=== PATIENT | female | born 2000 | race Caucasian/White ===

== ENCOUNTER 2018-01-10 23:33 | Inpatient (IN) | payer OTHER ==
[~2018-01-10] VITALS: Ht 167.6 cm; Wt 86.8 kg
[2018-01-10] MEDS ORDERED: ONDANSETRON 4MG OD TAB PO STA (23:40)
[2018-01-11] VITALS (40 sets, daily range): BP systolic 111–145; BP diastolic 63–97; PULSE 68–98; TEMP 36.5–37.7; O2SAT 96–100; Ht 167.6 cm; Wt 86.8 kg
[2018-01-11 00:14] LABS: BLOOD UREA NITROGEN 8 mg/dl (7-18); CALCIUM 8.6 mg/dl (8.5-10.1); CARBON DIOXIDE 23 mmol/L (21-32); CREATININE 0.74 mg/dl (0.60-1.20); GLUCOSE 104 mg/dl (70-99); SODIUM 139 mmol/L (136-145)
[2018-01-11] MEDS ORDERED: POTASSIUM CHLORIDE 10 MEQ / 100ML WTR IV STA (00:42)
[2018-01-11] MEDS ORDERED: ONDANSETRON INJ 2 MG/ML 2 ML VIAL IV STA ×2 (00:42→08:12)
[2018-01-11] MEDS ORDERED: SODIUM CHLORIDE 0.9% 1000ML 1,000 ML IV ONE (00:45)
[2018-01-11] MEDS ORDERED: POTASSIUM CHLR 20 MEQ / WTR 40 MEQ in PREMIXED WATER 100 ML IV STA (00:48)
[2018-01-11] MEDS: POTASSIUM CHLR 10 MEQ / WTR 10 MEQ IV SCH ×2 (01:24→02:58)
[2018-01-11 01:37] LABS: BASO % 0.4 %; BASO ABS # 0.04 K/uL (0-0.2); EOS % 0.9 %; EOS ABS # 0.08 K/uL (0-0.5); HEMATOCRIT 35.9 % (37-47); HEMOGLOBIN 12.8 g/dL (12.0-16.0); IG# 0.02 K/uL (0.00-0.02); LYMPH % 35.1 %; LYMPH ABS # 3.19 K/uL (1.2-3.4); MEAN CELL VOLUME 82.9 fL (80-100); MEAN CORPUSCULAR HEMOGLOBIN 29.6 pg (25-34); MEAN CORPUSCULAR HGB CONC 35.7 g/dl (32-36); MEAN PLATELET VOLUME 9.9 fL (7.4-10.4); MONO % 8.5 %; MONO ABS # 0.77 K/uL (0.11-0.59); NEUT % 54.9 %; NEUT ABS # 4.99 K/uL (1.4-6.5); PLATELET COUNT 368 K/uL (130-400); RED CELL DISTRIBUTION WIDTH CV 12.6 % (11.5-14.5); RED CELL DISTRIBUTION WIDTH SD 38.2 fL (36.4-46.3); WHITE BLOOD COUNT 9.09 K/uL (4.8-10.8)
[2018-01-11 01:50] LABS: CKMB < 0.5 ng/ml (0.5-3.6)
[2018-01-11] MEDS ORDERED: MAGNESIUM HYDROXIDE SUSP 30 ML UDC PO PRN (02:45)
[2018-01-11] MEDS ORDERED: ALUMINUM/MAGNESIUM/SIMETH (MAALOX MAX) 30 ML UDC PO PRN (02:45)
[2018-01-11] MEDS ORDERED: ICU PROTOCOL FOR HYPERGLYCEMIA PRN (02:45)
[2018-01-11] MEDS ORDERED: ACETAMINOPHEN 325 MG TAB PO PRN (02:45)
--- NOTE | 2018-01-11 02:59 | Critical Care Consultation ---
Critical Care Consultation Date of Consultation: Jan 11, 2018. Attending Physician: Dr. 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 She was found back at her residence and 911 was called by friends. She can not recall how much she drank. She denies using any other substances and her toxicology screen is negative to date. Send out labs for synthetics are pending. Pt was minimally responsive when I first saw her. She had no response as nursing inserted a tello catheter or additional IV sites. However, about 15 minutes later she did arose a bit more to tell me a few details about her evening. Pt states she has been under more stress lately, but nothing that she wanted to talk about at this time. She was unaware of how she returned home and does not recall any additional events leading up to admission in the hospital. While pts BAL was 252, pt was also noted to have several runs of heart block that initially occurred while vomiting. The longest one was measured as p waves only for 11 seconds. In the last hour, she has had no more runs. Her potassium was 3.0 and is currently being replaced. The remainder of her labs are grossly normal. Other electrolytes are WNL. Pt denies any other significant history. Only medication she takes in her control pill. She denies weight loss, fever, dizziness, headache, muscle weakness, numbness, change in vision, sore throat, chest pain, palpitations, awareness of tachyarrhythmias, leg swelling, shortness of breath, cough, bloody stools, diarrhea, constipation, abdominal pain, other changes in urine or bowel habits. Past Medical/Surgical History Medical Problems: Alcohol intoxication Heart block Social History Smoking Status: Unknown if Ever Smoked Alcohol Use: occasionally (Never to this degree previously) Marital Status: single Occupation Status: [employer] student Home Medications Unable to Obtain Active Prescriptions or Reported Meds Current Inpatient Medications Current Inpatient Medications Medications (Trade) Dose Ordered Sig/Gordo Route Start Time Stop Time Status Last Admin Dose Admin Potassium Chloride 100 ml @ 100 mls/hr Q1H IV 01/11/18 01:00 01/11/18 02:59 01/11/18 02:58 100 MLS/HR Heparin Sodium (Porcine) (Heparin Sq 5000 Unit/0.5ml) 5,000 unit Q8H SQ 01/11/18 02:45 02/10/18 02:44 UNV Acetaminophen (Tylenol Tab) 650 mg Q4H PRN PO 01/11/18 02:45 02/10/18 02:44 UNV Al Hydrox/Mg Hydrox/Simethicone (Maalox Max Susp) 15 ml Q4H PRN PO 01/11/18 02:45 02/10/18 02:44 UNV Magnesium Hydroxide (Milk Of Magnesia Susp) 30 ml Q12H PRN PO 01/11/18 02:45 02/10/18 02:44 UNV Miscellaneous Information (Icu Protocol For Hyperglycemia) 1 ea PRN PRN N/A 01/11/18 02:45 01/13/18 02:44 UNV Potassium Chloride/Dextrose/ Sod Cl 1,000 ml @ 200 mls/hr Q5H IV 01/11/18 02:45 02/10/18 02:44 UNV Potassium Chloride 10 meq/ Prmx 100 ml @ 100 mls/hr Q1H IV 01/11/18 03:00 02/10/18 02:59 UNV Review of Systems 12 systems reviewed and negative other than previously mentioned in the HPI. Physical Exam Date Time Temp Pulse Resp B/P (MAP) Pulse Ox O2 Delivery O2 Flow Rate FiO2 01/11/18 02:30 98 16 98/60 97 Room Air 01/11/18 01:56 96 01/11/18 01:53 79 01/11/18 01:45 81 16 104/58 99 Room Air 01/11/18 01:01 115 01/11/18 01:00 99 15 106/61 98 Room Air 01/11/18 00:59 0 01/11/18 00:39 107 01/11/18 00:38 0 01/10/18 23:57 67 01/10/18 23:45 50 01/10/18 23:42 90 Room Air 01/10/18 23:42 36.7 65 16 107/68 90 Room Air 01/10/18 23:40 102 Vital Signs - as noted Laboratory Data - as noted Physical Exam: General - NAD, laying in vomit Eyes - PERRL, EOMI No icterus, gaze conjugate ENT - Mucosa moist, no lesions or candidiasis Neck - Supple, trachea midline, no masses or lymphadenopathy, no JVD or bruits Lungs - No paradoxical chest wall movement, coarse at the bases otherwise clear to auscultation bilaterally, no wheezes, rales, or rhonchi Heart - Sinus Tachycardia, No murmur, rubs, clicks, or gallops appreciated Abdomen - BS present, no bruits noted, tympanic to percussion, soft, nontender, nondistended, no organomegaly Extremities - No edema, pedal pulses intact Neuro - A&OX3 Strength extremities equal and appropriate bilaterally Reflexes: Bicep, brachioradialis, patellar, and plantar normal and equal CN:PERRL, EOMI, no facial asymmetry, uvula/tongue midline Laboratory Results Last 24 Hours Test 01/10/18 23:44 01/11/18 00:48 01/11/18 01:20 01/11/18 02:51 White Blood Count 9.09 K/uL Red Blood Count 4.33 M/uL Hemoglobin 12.8 g/dL Hematocrit 35.9 % Mean Corpuscular Volume 82.9 fL Mean Corpuscular Hemoglobin 29.6 pg Mean Corpuscular Hemoglobin Concent 35.7 g/dl Platelet Count 368 K/uL Mean Platelet Volume 9.9 fL Neutrophils (%) (Auto) 54.9 % Lymphocytes (%) (Auto) 35.1 % Monocytes (%) (Auto) 8.5 % Eosinophils (%) (Auto) 0.9 % Basophils (%) (Auto) 0.4 % Neutrophils # (Auto) 4.99 K/uL Lymphocytes # (Auto) 3.19 K/uL Monocytes # (Auto) 0.77 K/uL Eosinophils # (Auto) 0.08 K/uL Basophils # (Auto) 0.04 K/uL RDW Standard Deviation 38.2 fL RDW Coefficient of Variation 12.6 % Immature Granulocyte % (Auto) 0.2 % Immature Granulocyte # (Auto) 0.02 K/uL Sodium Level 139 mmol/L Potassium Level 3.0 mmol/L Chloride Level 106 mmol/L Carbon Dioxide Level 23 mmol/L Anion Gap 10.0 mmol/L Blood Urea Nitrogen 8 mg/dl Creatinine 0.74 mg/dl Est Creatinine Clear Calc Drug Dose 130.4 ml/min Estimated GFR () 136.1 Estimated GFR (Non- 117.4 BUN/Creatinine Ratio 10.2 Bedside Glucose 103 mg/dl Random Glucose 104 mg/dl Calcium Level 8.6 mg/dl Phosphorus Level 3.0 mg/dl Magnesium Level 2.3 mg/dl Total Creatine Kinase 82 U/L Creatine Kinase MB < 0.5 ng/ml Creatine Kinase MB Ratio Troponin I < 0.015 ng/ml Thyroid Stimulating Hormone (TSH) 0.713 uIu/ml Human Chorionic Gonadotropin, Qual NEG Ethyl Alcohol mg/dL 252.0 mg/dl Lyme Disease IgG Antibody NEG Lyme Disease IgM Antibody NEG Urine Color YELLOW Urine Appearance CLEAR Urine pH 5.0 Urine Specific [place] 1.011 Urine Protein NEG Urine Glucose (UA) NEG Urine Ketones NEG Urine Occult Blood NEG Urine Nitrite NEG Urine Bilirubin NEG Urine Urobilinogen NEG Urine Leukocyte Esterase NEG Urine WBC (Auto) 0 /hpf Urine RBC (Auto) 0-4 /hpf Urine Hyaline Casts (Auto) 0 /lpf Urine Epithelial Cells (Auto) 0-5 /lpf Urine Bacteria (Auto) NEG Urine Opiates Screen NEG Urine Methadone, Qualitative NEG Urine Barbiturates NEG Urine Phencyclidine (PCP) Level NEG Ur Amphetamine/Methamphetamine NEG MDMA (Ecstasy) Screen NEG Urine Benzodiazepines Screen NEG Urine Cocaine Metabolite NEG Urine Marijuana (THC) NEG Diagnostic Results CT Head: No acute intracranial abnormality identified. Poylps versus mucous retention cyst and mucosal thickening in the left maxillary sinus. Mild mucosal thickening in the ethmoid arid cells. CXR: No acute process noted. Assessment & Plan (1) Heart block (2) Alcohol intoxication (3) Hypokalemia Reason Critically Ill: Patient is an 17-year-old female who is transferred to the ICU for close monitoring for heart block noted in the setting of acute alcohol intoxication. BAL 252. PLAN: Neuro: * Psych Consult placed * Pt denies suicidal ideation * No pain noted Resp: * Supplemental oxygen as required CV: * Pacer pads to remain in place * Cardiology consulted: Dr. Delarosa * Appears to be related to acute alcohol intoxication and nausea * Troponin Neg x1 * 2nd Degree AV block noted during bouts of nausea * Monitor on telemetry * Prolonged QTc, Monitor closely * ECHO pending * Optimize Electrolytes * R/O Sarcoid Fluids/Renal: * Fluids @ 200 (D5NSS + 20K) * Tello in place * Trend Cr ID: * No current indication * Trend Fever Curve GI/Nutrition: * NPO * Nausea * Milk of Magnesia and Maalox available * Prolonged QTc Heme: * Daily CBC * DVT: Heparin SQ Endocrine: * Accu-Checks per protocol, started insulin infusion for 2 blood sugars greater than 180 * TSH: 0.713 Access: Maintain 2 (18g) IV sites CCT: 45 Minutes; This time is exclusive of all separately billable procedures. Thank you for involving us in the care of this patient. Please refer to Dr. Marie's addendum for further recommendations.
--- NOTE | 2018-01-11 03:23 | History and Physical ---
History & Physical Date & Time of Service: Jan 11, 2018 at 02:53 Chief Complaint: Alcohol Overdose Primary Care Physician: No Doctor, Assigned History of Present Illness Source: patient 17 y/o F with no known medical history. The pt drank an excessive amount of alcohol, eventually began vomiting and then became poorly responsive. EMS were alerted and subsequently transported her to the ER. While on monitor in the ER she had several episodes of complete heart block lasting as long as 11 seconds. Initial labs were notable only for hypokalemia and an ETOH level of 252. She regained her orientation in the ER and is AAO x 3 at the time of admission. She does not recall any episodes of lightheadedness, CP or SOB over the past several days. 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 [employer] - does not smoke - occasional alcohol, denies excessive use in general Smoking Status: Never Smoker Home Medications Unable to Obtain Active Prescriptions or Reported Meds Review of Systems Constitutional: No fever, No chills, No sweats Eyes: No worsening of vision ENT: No hearing loss, No nasal symptoms Respiratory: No cough, No sputum, No wheezing Cardiovascular: No chest pain, No orthopnea, No PND Abdomen: + nausea, + vomiting, No pain Musculoskeletal: No joint pain Genitourinary - Female: No dysuria, No urinary frequency, No urinary urgency Neurologic: + problem reported (Near LOC during intoxication), No memory loss , No paralysis Psychiatric: No depression symptoms Endocrine: No fatigue Hematologic / Lymphatic: No abnormal bleeding/bruising Integumentary: No rash Allergic / Immunologic: No environmental allergies Physical Exam Vital Signs Date Time Temp Pulse Resp B/P (MAP) Pulse Ox O2 Delivery O2 Flow Rate FiO2 01/11/18 02:30 98 16 98/60 97 Room Air 01/11/18 01:56 96 01/11/18 01:53 79 01/11/18 01:45 81 16 104/58 99 Room Air 01/11/18 01:01 115 01/11/18 01:00 99 15 106/61 98 Room Air 01/11/18 00:59 0 01/11/18 00:39 107 01/11/18 00:38 0 01/10/18 23:57 67 01/10/18 23:45 50 3/15/18 23:42 90 Room Air 01/10/18 23:42 36.7 65 16 107/68 90 Room Air 01/10/18 23:40 102 General Appearance: + pertinent finding (Overweight, well-appearing young female in no distress) Head: normocephalic ENT: normal ENT inspection, pharynx normal Neck: supple, no JVD Respiratory/Chest: chest non-tender, lungs clear, normal breath sounds Cardiovascular: regular rate, rhythm, no edema, no gallop Abdomen/GI: normal bowel sounds, non tender, soft Back: normal inspection, no CVA tenderness Extremities/Musculoskelatal: normal inspection, no calf tenderness Neurologic/Psych: terrazzo mechanic II-XII nml as tested, no motor/sensory deficits, alert, oriented x 3 Skin: normal color Diagnostics Laboratory Results Results Past 24 Hours Test 01/10/18 23:44 01/11/18 00:48 01/11/18 01:20 Range/Units White Blood Count 9.09 4.8-10.8 K/uL Red Blood Count 4.33 4.2-5.4 M/uL Hemoglobin 12.8 12.0-16.0 g/dL Hematocrit 35.9 37-47 % Mean Corpuscular Volume 82.9 80-100 fL Mean Corpuscular Hemoglobin 29.6 25-34 pg Mean Corpuscular Hemoglobin Concent 35.7 32-36 g/dl Platelet Count 368 130-400 K/uL Mean Platelet Volume 9.9 7.4-10.4 fL Neutrophils (%) (Auto) 54.9 % Lymphocytes (%) (Auto) 35.1 % Monocytes (%) (Auto) 8.5 % Eosinophils (%) (Auto) 0.9 % Basophils (%) (Auto) 0.4 % Neutrophils # (Auto) 4.99 1.4-6.5 K/uL Lymphocytes # (Auto) 3.19 1.2-3.4 K/uL Monocytes # (Auto) 0.77 0.11-0.59 K/uL Eosinophils # (Auto) 0.08 0-0.5 K/uL Basophils # (Auto) 0.04 0-0.2 K/uL RDW Standard Deviation 38.2 36.4-46.3 fL RDW Coefficient of Variation 12.6 11.5-14.5 % Immature Granulocyte % (Auto) 0.2 % Immature Granulocyte # (Auto) 0.02 0.00-0.02 K/uL Sodium Level 139 136-145 mmol/L Potassium Level 3.0 3.5-5.1 mmol/L Chloride Level 106 98-107 mmol/L Carbon Dioxide Level 23 21-32 mmol/L Anion Gap 10.0 3-11 mmol/L Blood Urea Nitrogen 8 7-18 mg/dl Creatinine 0.74 0.60-1.20 mg/dl Est Creatinine Clear Calc Drug Dose 130.4 ml/min Estimated GFR () 136.1 Estimated GFR (Non- 117.4 BUN/Creatinine Ratio 10.2 10-20 Bedside Glucose 103 70-90 mg/dl Random Glucose 104 70-99 mg/dl Calcium Level 8.6 8.5-10.1 mg/dl Phosphorus Level 3.0 2.5-4.9 mg/dl Magnesium Level 2.3 1.8-2.4 mg/dl Total Creatine Kinase 82 26-192 U/L Creatine Kinase MB < 0.5 0.5-3.6 ng/ml Creatine Kinase MB Ratio 0-3.0 Troponin I < 0.015 0-0.045 ng/ml Thyroid Stimulating Hormone (TSH) 0.713 0.300-4.500 uIu/ml Human Chorionic Gonadotropin, Qual NEG NEG Ethyl Alcohol mg/dL 252.0 0-3 mg/dl Lyme Disease IgG Antibody NEG NEG Lyme Disease IgM Antibody NEG NEG Urine Color YELLOW Urine Appearance CLEAR CLEAR Urine pH 5.0 4.5-7.5 Urine Specific [place] 1.011 1.000-1.030 Urine Protein NEG NEG Urine Glucose (UA) NEG NEG Urine Ketones NEG NEG Urine Occult Blood NEG NEG Urine Nitrite NEG NEG Urine Bilirubin NEG NEG Urine Urobilinogen NEG NEG Urine Leukocyte Esterase NEG NEG Urine WBC (Auto) 0 0-5 /hpf Urine RBC (Auto) 0-4 0-4 /hpf Urine Hyaline Casts (Auto) 0 0-5 /lpf Urine Epithelial Cells (Auto) 0-5 0-5 /lpf Urine Bacteria (Auto) NEG NEG Urine Opiates Screen NEG NEG Urine Methadone, Qualitative NEG NEG Urine Barbiturates NEG NEG Urine Phencyclidine (PCP) Level NEG NEG Ur Amphetamine/Methamphetamine NEG NEG MDMA (Ecstasy) Screen NEG NEG Urine Benzodiazepines Screen NEG NEG Urine Cocaine Metabolite NEG NEG Urine Marijuana (THC) NEG NEG Diagnostic Radiology CT head: Sinus mucosal thickening or possible polyp in L maxillary sinus - otherwise unremarkable EKG Sinus, mild QT prolongation - 485 Impression Assessment and Plan 17 y/o F with no known medical history. The pt drank an excessive amount of alcohol, eventually began vomiting and then became poorly responsive. EMS were alerted and subsequently transported her to the ER. While on monitor in the ER she had several episodes of complete heart block lasting as long as 11 seconds. Initial labs were notable only for hypokalemia and an ETOH level of 252. She regained her orientation in the ER and is AAO x 3 at the time of admission. She does not recall any episodes of lightheadedness, CP or SOB over the past several days. 1) Heart block - etiology not clear - no history of in past - QT is prolonged, however she has not had episodes of VT or fib. An echo is pending, external pacers applied, transferred to ICU for monitoring pending cardio eval. Lyme PCR is initially negative. We will check an ESR and RADHA level as sarcoid is in differential. 2) Alcohol intoxication - awake/alert on admission - IVF provided - will avoid antiemetics due to QT prolongation and heart block 3) Hypokalemia - corrected Full code - Heparin prophylaxis Total time for this admit including review of labs, meds, imaging, records - discussion with pt and ER attending - inc critical care time - 38 min Resuscitation Status VTE Prophylaxis Will order VTE Prophylaxis: Yes
[2018-01-11] MEDS: D5NSS + 20MEQ KCL 1,000 ML IV SCH ×4 (04:12→20:10)
[2018-01-11] MEDS: POTASSIUM CHLR 10 MEQ / WTR 10 MEQ in PREMIXED WATER 100 ML IV SCH ×2 (04:13→05:32)
[2018-01-11] MEDS: HEPARIN SOD 5000 UNIT/0.5 ML CARP SQ SCH ×3 (06:00→22:12)
--- NOTE | 2018-01-11 06:48 | EMERGENCY ROOM VISIT NOTE ---
History First contact with patient: 23:34 Chief Complaint: ALCOHOL OVERDOSE Stated Complaint: ALCOHOL INTOXICATION; HEART BLOCK, FIRST DEGREE Nursing Triage Summary: friends called ems. found pt in apartment intoxicated. friends unsure how much she drank or what per ems. History of Present Illness The patient is a 17 year old female who presents to the Emergency Room for evaluation of alcohol overdose. The patient was found in her apartment intoxicated and vomiting. The patient's roommates contacted EMS, and now the patient presents for further evaluation. The patient did have 2 episodes of vomiting in the ambulance, but none here. The patient is grossly intoxicated and history is limited secondary to her status. There are no reports of trauma or injury. Review of Systems More than 10 systems were reviewed and otherwise negative with the exception of history of present illness. Past Medical/Surgical History Medical Problems: (1) Alcohol intoxication (2) Heart block (3) Heart block, first degree (4) Hypokalemia Family History Father with A. fib, Sister with lupus, Mother with melanoma Social History Smoking Status: Never Smoker Marital Status: single Occupation Status: [employer] student Current/Historical Medications Unable to Obtain Active Prescriptions or Reported Meds Physical Exam Vital Signs Date Time Temp Pulse Resp B/P (MAP) Pulse Ox O2 Delivery O2 Flow Rate FiO2 01/11/18 02:30 98 16 98/60 97 Room Air 01/11/18 01:56 96 01/11/18 01:53 79 01/11/18 01:45 81 16 104/58 99 Room Air 01/11/18 01:01 115 01/11/18 01:00 99 15 106/61 98 Room Air 01/11/18 00:59 0 01/11/18 00:39 107 01/11/18 00:38 0 01/10/18 23:57 67 01/10/18 23:45 50 01/10/18 23:42 90 Room Air 01/10/18 23:42 36.7 65 16 107/68 90 Room Air 01/10/18 23:40 102 Physical Exam VITALS: Vitals are noted on the nurse's note and reviewed by myself. Vital signs stable. GENERAL: Intoxicated female who is not able to answer questions. She is obtunded. HEAD: Normocephalic atraumatic. EARS: External ear normal. External auditory canals clear, tympanic membranes pearly sol without erythema or effusion bilaterally. EYES: Pupils equal round and reactive to light and accommodation. Conjunctivae without injection MOUTH: Mucous membranes moist. Tonsils are not enlarged. Pharynx without erythema, blood, or exudate. Uvula midline. Airway patent. HEART: Regular rate and rhythm without murmurs gallops or rubs. LUNGS: Clear to auscultation bilaterally without wheezes, rales or rhonchi. No retractions or accessory muscle use. MUSCULOSKELETAL: No muscle atrophy, erythema, or edema noted. No obvious injuries or lacerations/abrasions. No bruising. NEURO: Patient was obviously intoxicated and not alert or able to answer questions. Medical Decision & Procedures ER Provider Diagnostic Interpretation: Preliminary Findings Only See Final Report For Complete Findings CT HEAD: No acute intracranial abnormality identified. Polyps versus mucous retention cyst and mucosal thickening in the left maxillary sinus. Mild mucosal thickening in the ethmoid air cells Laboratory Results 01/10/18 23:44 Red Blood Count 4.33, Mean Corpuscular Volume 82.9, Mean Corpuscular Hemoglobin 29.6, Mean Corpuscular Hemoglobin Concent 35.7, Mean Platelet Volume 9.9, Neutrophils (%) (Auto) 54.9, Lymphocytes (%) (Auto) 35.1, Monocytes (%) (Auto) 8.5, Eosinophils (%) (Auto) 0.9, Basophils (%) (Auto) 0.4, Neutrophils # (Auto) 4.99, Lymphocytes # (Auto) 3.19, Monocytes # (Auto) 0.77, Eosinophils # (Auto) 0.08, Basophils # (Auto) 0.04 01/10/18 23:44 Test 01/10/18 23:44 01/11/18 00:48 01/11/18 01:20 White Blood Count 9.09 K/uL (4.8-10.8) Red Blood Count 4.33 M/uL (4.2-5.4) Hemoglobin 12.8 g/dL (12.0-16.0) Hematocrit 35.9 % (37-47) Mean Corpuscular Volume 82.9 fL (80-100) Mean Corpuscular Hemoglobin 29.6 pg (25-34) Mean Corpuscular Hemoglobin Concent 35.7 g/dl (32-36) Platelet Count 368 K/uL (130-400) Mean Platelet Volume 9.9 fL (7.4-10.4) Neutrophils (%) (Auto) 54.9 % Lymphocytes (%) (Auto) 35.1 % Monocytes (%) (Auto) 8.5 % Eosinophils (%) (Auto) 0.9 % Basophils (%) (Auto) 0.4 % Neutrophils # (Auto) 4.99 K/uL (1.4-6.5) Lymphocytes # (Auto) 3.19 K/uL (1.2-3.4) Monocytes # (Auto) 0.77 K/uL (0.11-0.59) Eosinophils # (Auto) 0.08 K/uL (0-0.5) Basophils # (Auto) 0.04 K/uL (0-0.2) RDW Standard Deviation 38.2 fL (36.4-46.3) RDW Coefficient of Variation 12.6 % (11.5-14.5) Immature Granulocyte % (Auto) 0.2 % Immature Granulocyte # (Auto) 0.02 K/uL (0.00-0.02) Erythrocyte Sedimentation Rate 16 mm/hr (0-21) Anion Gap 10.0 mmol/L (3-11) Est Creatinine Clear Calc Drug Dose 130.4 ml/min Estimated GFR () 136.1 Estimated GFR (Non- 117.4 BUN/Creatinine Ratio 10.2 (10-20) Bedside Glucose 103 mg/dl (70-90) Calcium Level 8.6 mg/dl (8.5-10.1) Magnesium Level 2.3 mg/dl (1.8-2.4) Total Creatine Kinase 82 U/L (26-192) Creatine Kinase MB < 0.5 ng/ml (0.5-3.6) Troponin I < 0.015 ng/ml (0-0.045) Thyroid Stimulating Hormone (TSH) 0.713 uIu/ml (0.300-4.500) Human Chorionic Gonadotropin, Qual NEG (NEG) Ethyl Alcohol mg/dL 252.0 mg/dl (0-3) Lyme Disease IgG Antibody NEG (NEG) Lyme Disease IgM Antibody NEG (NEG) Creatine Kinase MB Ratio (0-3.0) Urine Color YELLOW Urine Appearance CLEAR (CLEAR) Urine pH 5.0 (4.5-7.5) Urine Specific [place] 1.011 (1.000-1.030) Urine Protein NEG (NEG) Urine Glucose (UA) NEG (NEG) Urine Ketones NEG (NEG) Urine Occult Blood NEG (NEG) Urine Nitrite NEG (NEG) Urine Bilirubin NEG (NEG) Urine Urobilinogen NEG (NEG) Urine Leukocyte Esterase NEG (NEG) Urine WBC (Auto) 0 /hpf (0-5) Urine RBC (Auto) 0-4 /hpf (0-4) Urine Hyaline Casts (Auto) 0 /lpf (0-5) Urine Epithelial Cells (Auto) 0-5 /lpf (0-5) Urine Bacteria (Auto) NEG (NEG) Urine Opiates Screen NEG (NEG) Urine Methadone, Qualitative NEG (NEG) Urine Barbiturates NEG (NEG) Urine Phencyclidine (PCP) Level NEG (NEG) Ur Amphetamine/Methamphetamine NEG (NEG) MDMA (Ecstasy) Screen NEG (NEG) Urine Benzodiazepines Screen NEG (NEG) Urine Cocaine Metabolite NEG (NEG) Urine Marijuana (THC) NEG (NEG) Medications Administered Medications (Trade) Dose Ordered Sig/Gordo Route Start Time Stop Time Status Last Admin Dose Admin Sodium Chloride 1,000 ml @ 999 mls/hr Q1H1M ONCE IV 01/11/18 00:45 01/11/18 01:45 DC 01/11/18 01:24 999 MLS/HR Potassium Chloride 100 ml @ 100 mls/hr Q1H IV 01/11/18 01:00 01/11/18 02:59 DC 01/11/18 02:58 100 MLS/HR ED Course Physical exam and history were performed. Nursing notes, EMR, and Medication List were personally reviewed. Patient appears to have been drinking alcohol tonight with a few episodes of vomiting prehospital. On examination the patient is obviously intoxicated and obtunded. Labs were obtained of the patient was cared for under aspiration precautions. She was placed on a diagnostic cardiac sonographer. The initial blood work of the patient showed a glucose of around 100 with an elevated alcohol level of 252. The patient is not , and we continue to monitor the patient. Roughly 64 minutes into the patient's ER stay she had a dysrhythmic episode on the diagnostic cardiac sonographer. The patient had a few second run of P waves with no QRS complexes. As we were investigating this the patient had a second, 11 second run that appears to be full heart block. She has an episode of 10 P waves with no QRS complexes. At the time of this episode the patient continues to be intoxicated, and she could not verbalize any associated symptoms. This was discussed with my attending physician, remain closely involved in care and decision-making A second large IV site was placed, with additional labs obtained. Urine was collected via catheter. Chest x-ray and head CT were performed. Pacer pads were placed, and code cart was placed in the patient's room. The patient's chest x-ray was reviewed by myself and my attending showing no acute process. CT scan of the head is without acute intracranial abnormality. The patient's additional blood work is without significant white blood cell count or anemia. TSH is euthyroid. Magnesium and phosphorus are normal. Lyme is negative. Drug of abuse screen is negative with synthetics pending. Her potassium is 3.0, and this was repleted through the IV. EKG did show a prolonged QT but was otherwise normal sinus rhythm. The patient had several additional shorter runs of full heart block, however none of these were sustained. Because of the patient's status and inability to obtain additional history from her I did contact her parents Wily ([phone] cell) and Rachel ([phone] cell [phone] home). They indicate the patient does not have chronic medical disease. They believe that she is under increased stressors with school, but does not have psychiatric history. She does not knowing use illicit drugs they do not believe that she uses illicit drugs. They believe she is on control. There is a family history of paternal atrial fibrillation and maternal melanoma. Otherwise the additional information was fairly unremarkable. Of note, the family will be traveling from [place] to be with her daughter. Overall the patient does not appear well for discharge home. She is going in and out of a complete heart block of unknown etiology. This is complicated by her intoxication status and inability to provide us with additional information. I discussed the case with the on-call hospitalist, Dr Bro, the on-call surveillance technician Dr. Delarosa, and the ICU SCOTT Kaufman. The patient was transferred to the ICU in stable condition. I did keep the family updated on their daughter status throughout the patient's ER stay. Please see the hospitalist and ICU dictations for further patient course, plan, and disposition. The chart was completed utilizing [employer] Speech Voice Recognition Software. Grammatical errors, random word insertions, pronoun errors, and incomplete sentences are an occasional consequence of this system due to software limitations, ambient noise, and hardware issues. Any formal questions or concerns about the content, text, or information contained within the body of this dictation should be directly addressed to the provider for clarification. . Medical Decision Differential diagnosis includes, but is not limited to: Alcohol intoxication, dysrhythmia, myocardial infarction, dysrhythmia, pericarditis, pneumothorax, aortic aneurysm/dissection, DVT/PE, anxiety, GERD, PUD, electrolyte imbalance, thyroid disorder, pneumonia, bronchitis, pancreatitis, and others Impression Primary Impression: Heart block Additional Impression: Alcohol intoxication Critical Care I have personally spent greater than 60 minutes of critical care time in the direct management of this patient. This includes bedside care, interpretation of diagnostic studies, and testing, discussion with consultants, patient, and family members, and other required patient management activities. This 60 minutes is in excess of all separately billable procedures. Departure Information Dispostion Still a Patient Condition FAIR Prescriptions Unable to Obtain Active Prescriptions or Reported Meds Referrals No Doctor, Assigned (PCP) Forms HOME CARE DOCUMENTATION FORM, IMPORTANT VISIT INFORMATION Patient Instructions My [facility] Problem Qualifiers
--- NOTE | 2018-01-11 06:54 | DIAGNOSTIC IMAGING REPORT ---
CT OF THE HEAD WITHOUT CONTRAST CLINICAL HISTORY: AMS. Alcohol COMPARISON STUDY: No previous studies for comparison. CT DOSE: 614.27 mGy.cm TECHNIQUE: Helical axial images of the head were obtained without IV contrast. Automated exposure control was utilized for the study. A dose lowering technique was utilized adhering to the principles of ALARA. FINDINGS: No acute intracranial hemorrhage, midline shift or mass effect is present. Ventricular system is normal. Basilar cisterns are patent. There are no extra-axial collections. Mendez-white differentiation is maintained. There is no calvarial fracture. There is mild to moderate mucosal thickening of the left maxillary and ethmoid sinuses. IMPRESSION: 1. No acute intracranial findings. 2. No calvarial fracture. 3. Left maxillary and ethmoid sinus mucosal thickening. Electronically signed by: Nimesh Arboleda M.D. 01/11/2018 6:52 AM Dictated Date/Time: 01/11/2018 6:50 AM
--- NOTE | 2018-01-11 07:24 | DIAGNOSTIC IMAGING REPORT ---
SINGLE VIEW CHEST CLINICAL HISTORY: Change in mental status. Intoxication. FINDINGS: A PA prone chest radiograph is obtained. No prior studies are available for comparison at the time of dictation. The examination is degraded by patient rotation. The cardiomediastinal silhouette is unremarkable. The lungs and pleural spaces are clear. No pneumothorax is seen. The bony thorax is grossly intact. There is apparent thoracic scoliosis which may be positional. Clinical correlation will be required. IMPRESSION: No acute cardiopulmonary abnormality. Electronically signed by: Shane Combs M.D. 01/11/2018 7:23 AM Dictated Date/Time: 01/11/2018 7:22 AM
[2018-01-11] MEDS ORDERED: ONDANSETRON INJ 2 MG/ML 2 ML VIAL ONE (07:48)
--- NOTE | 2018-01-11 08:31 | ECHOCARDIOGRAM REPORT ---
*NOTICE TO RECEIVING DEMOCRAT AGENCY This information is strictly Confidential and protected under [place] law. [place] law prohibits you from making any further disclosure of this information unless further disclosure is expressly permitted by the written consent of the person to whom it pertains or is authorized by law. A general authorization for the release of medical or other information is not sufficient for this purpose. Hospital accepts no responsibility if the information is made available to any other person, INCLUDING THE PATIENT. Interpretation Summary * Conclusions -- * 1. Normal LV size and wall thickness. * 2. Normal LV function. LVEF 55-60%. No regional wall motion abnormalities. * 3. Normal RV size and function. * 4. No significant valvular pathology. * 5. Normal estimated RA and PA pressures. * 6. No prior studies for comparison. Procedure Details * A complete two-dimensional transthoracic echocardiogram was performed (2D, M-mode, Doppler and color flow Doppler). Left Ventricle * The left ventricle is grossly normal size. * There is normal left ventricular wall thickness. * Left ventricular systolic function is normal. * Ejection Fraction = 55-60%. * No regional wall motion abnormalities noted. Right Ventricle * The right ventricle is grossly normal size. * The right ventricular systolic function is normal as assessed by tricuspid annular plane systolic excursion (TAPSE) (normal >1.5 cm). Atria * The left atrial size is normal. * Right atrial size is normal. * No ASD detected; PFO is not assessed. Mitral Valve * The mitral valve is grossly normal. * There is no mitral valve stenosis. * Significant mitral regurgitation is absent. Tricuspid Valve * The tricuspid valve is not well visualized, but is grossly normal. * There is trace tricuspid regurgitation. Aortic Valve * The aortic valve opens well. * The aortic valve is trileaflet. * No hemodynamically significant valvular aortic stenosis. * There is no significant aortic regurgitation. Pulmonic Valve * The pulmonary valve is not well seen, but the Doppler examination is normal without significant regurgitation or stenosis. * There is no pulmonic valvular stenosis. * Trace pulmonic valvular regurgitation. Great Vessels * The aortic root and proximal ascending aorta are normal sized. Pericardium/Pleural * There is no pericardial effusion. Great Vessels * Normal inferior vena cava size and collapsability with sniff indicates a normal right atrial pressure of 3 mmHg * There is no evidence of pulmonary hypertension. The PA systolic pressure is less than 36 mmHg. MMode 2D Measurements and Calculations IVSd 0.95 cm IVSs 1.2 cm LVIDd 5.2 cm LVIDs 3.4 cm LVPWd 0.79 cm LVPWs 1.2 cm IVS/LVPW 1.2 FS 34.3 % EDV(Teich) 127.3 ml ESV(Teich) 47.1 ml EF(Teich) 63.0 % EDV(cubed) 137.5 ml ESV(cubed) 39.0 ml EF(cubed) 71.6 % % IVS thick 26.6 % % LVPW thick 49.1 % LV mass(C)d 160.4 grams LV mass(C)dI 84.2 grams/m\S\2 LV mass(C)s 128.8 grams LV mass(C)sI 67.6 grams/m\S\2 SV(Teich) 80.2 ml SI(Teich) 42.1 ml/m\S\2 SV(cubed) 98.5 ml SI(cubed) 51.7 ml/m\S\2 Ao root diam 3.0 cm Ao root area 7.2 cm\S\2 ACS 1.5 cm LA dimension 3.3 cm asc Aorta Diam 2.5 cm LA/Ao 1.1 EDV(MOD-sp4) 102.0 ml ESV(MOD-sp4) 44.5 ml EF(MOD-sp4) 56.4 % EDV(MOD-sp2) 99.0 ml ESV(MOD-sp2) 38.0 ml EF(MOD-sp2) 61.6 % SV(MOD-sp4) 57.5 ml SI(MOD-sp4) 30.2 ml/m\S\2 SV(MOD-sp2) 61.0 ml SI(MOD-sp2) 32.0 ml/m\S\2 Doppler Measurements and Calculations MV E max jocelyn 89.5 cm/sec MV A max jocelyn 60.4 cm/sec MV E/A 1.5 MV P1/2t max jocelyn 97.5 cm/sec MV P1/2t 106.7 msec MVA(P1/2t) 2.1 cm\S\2 MV dec slope 267.6 cm/sec\S\2 MV dec time 0.21 sec Ao V2 max 126.5 cm/sec Ao max PG 6.4 mmHg Ao max PG (full) 1.8 mmHg LV V1 max PG 4.6 mmHg LV V1 max 107.7 cm/sec PA V2 max 85.8 cm/sec PA max PG 2.9 mmHg TR max jocelyn 173.2 cm/sec
[2018-01-11] MEDS ORDERED: OPTIRAY 320 IV PRN (09:00)
[2018-01-11] MEDS ORDERED: NURSING VERBAL MED ORDER ONE ×3 (09:00→14:30)
--- NOTE | 2018-01-11 09:07 | DIAGNOSTIC IMAGING REPORT ---
(CHEST FOR PE) ANGIO WITH CLINICAL HISTORY: 17 years-old Female presenting with ^chest pain, n/v ^CHEST PAIN/ ORAL CONTRACEPTION, alcohol intoxication, first degree heart block, nausea and vomiting. TECHNIQUE: Multidetector CT angiography of the chest was performed after administration of intravenous contrast. 3-D volumetric and/or maximum intensity projection (MIP) images were subsequently reconstructed for review. IV contrast: 93 mL of Optiray 320. A dose lowering technique was used consistent with the principles of ALARA (as low as reasonably achievable). COMPARISON: Chest x-ray performed earlier the same day. CT DOSE (mGy.cm): The estimated cumulative dose is 288.60 mGy.cm. FINDINGS: [employer] topogram: Unremarkable. Pulmonary vasculature: The study is adequate for assessment of the pulmonary vascular tree. No filling defect within the pulmonary arteries to suggest embolus. Main pulmonary artery is not enlarged. No flattening of the interventricular septum. No intracardiac filling defect. No reflux of contrast into the hepatic veins. Remaining chest: On soft tissue windows, normal thyroid and thoracic inlet. No axillary, supraclavicular, hilar, or mediastinal lymphadenopathy. Normal aorta. Normal heart size. No pericardial or pleural effusion. Upper abdomen normal. On lung windows, no focal infiltrate or nodule. Airways patent. On bone windows, normal osseous structures. IMPRESSION: 1. No evidence of pulmonary embolus. No acute intrathoracic pathology. Electronically signed by: Kenji Luu M.D. 01/11/2018 9:05 AM Dictated Date/Time: 01/11/2018 9:00 AM
[2018-01-11 09:16] LABS: HEMATOCRIT 34.7 % (37-47); HEMOGLOBIN 12.3 g/dL (12.0-16.0); IG# 0.02 K/uL (0.00-0.02); LYMPH % 17.5 %; LYMPH ABS # 1.46 K/uL (1.2-3.4); MEAN CELL VOLUME 81.1 fL (80-100); MEAN CORPUSCULAR HEMOGLOBIN 28.7 pg (25-34); MEAN CORPUSCULAR HGB CONC 35.4 g/dl (32-36); MEAN PLATELET VOLUME 9.1 fL (7.4-10.4); MONO % 2.8 %; MONO ABS # 0.23 K/uL (0.11-0.59); NEUT % 79.5 %; NEUT ABS # 6.63 K/uL (1.4-6.5); PLATELET COUNT 336 K/uL (130-400); RED CELL DISTRIBUTION WIDTH CV 12.7 % (11.5-14.5); RED CELL DISTRIBUTION WIDTH SD 37.3 fL (36.4-46.3); WHITE BLOOD COUNT 8.34 K/uL (4.8-10.8)
[2018-01-11] MEDS: PROMETHAZINE HCL INJ 25 MG in SODIUM CHLORIDE 0.9% 50ML 50 ML IV PRN ×2 (09:29→15:02)
[2018-01-11 09:42] LABS: CALCIUM 8.6 mg/dl (8.5-10.1); CREATININE 0.72 mg/dl (0.60-1.20); POTASSIUM 3.7 mmol/L (3.5-5.1)
[2018-01-11 09:46] LABS: INFLUENZA A PCR Neg for Influ A (NEG); INFLUENZA B PCR Neg for Influ B (NEG)
[2018-01-11 09:50] LABS: PHOSPHORUS 0.8 mg/dl (2.5-4.9)
[2018-01-11] MEDS ORDERED: SODIUM PHOSPHATE 3 MMOL/1 ML INFUSION IV STA (10:13)
[2018-01-11] MEDS ORDERED: SODIUM PHOSPHATE INJ 21 MMOL in SODIUM CHLORIDE 0.9% 500ML 500 ML IV ONE (10:30)
[2018-01-11] MEDS: MAGNESIUM SULFATE 1GM / D5W 1 GM in PREMIXED IN D5W 100 ML IV SCH ×2 (10:42→12:56)
[2018-01-11] MEDS ORDERED: LORAZEPAM 2 MG/ML 1 ML VIAL ONE ×2 (10:47→14:33)
--- NOTE | 2018-01-11 12:49 | Critical Care Progress Note ---
Critical Care Progress Note Date of Service Jan 11, 2018. ICU Day ICU Day Number: 1 Attending Subjective Had some nausea and chest pain AM today. Persistent vomiting. Given Phenergan and Ativan with good result. No dyspnea. No fever or chills. No significant abdominal pain. Given history of OCs and target complaints images obtained for completeness. No PE or intrathoracic trauma/injury. ECHO looking good. Repeat EKG ok. Objective Gen--no distress HEENT--no focal changes. Vitals--stable Pulmonary--toilet adequate Cardio--rate and volume status ok GI--active Neuro--no focal changes. Musculo--stable--no trauma suggested Assessment & Plan ETOH intoxication with likely vaso vagal episode and some persistent nausea and vomiting. 1. Cardio--Appears stable. Final cardiology opinion and if OK can discharge 2. Pulmonary--toilet 3. GI--appears resolved 4. Neuro--stable Data Medications: Current Inpatient Medications Medications (Trade) Dose Ordered Sig/[place] Route Start Time Stop Time Status Last Admin Dose Admin Heparin Sodium (Porcine) (Heparin Sq 5000 Unit/0.5ml) 5,000 unit Q8H SQ 01/11/18 06:00 02/10/18 05:59 Acetaminophen (Tylenol Tab) 650 mg Q4H PRN PO 01/11/18 02:45 02/10/18 02:44 Al Hydrox/Mg Hydrox/Simethicone (Maalox Max Susp) 15 ml Q4H PRN PO 01/11/18 02:45 02/10/18 02:44 Magnesium Hydroxide (Milk Of Magnesia Susp) 30 ml Q12H PRN PO 01/11/18 02:45 02/10/18 02:44 Miscellaneous Information (Icu Protocol For Hyperglycemia) 1 ea PRN PRN N/A 01/11/18 02:45 01/13/18 02:44 Potassium Chloride/Dextrose/ Sod Cl 1,000 ml @ 200 mls/hr Q5H IV 01/11/18 04:00 01/11/18 13:59 01/11/18 09:29 200 MLS/HR Ioversol (Optiray 320) 100 ml UD PRN IV 01/11/18 09:00 01/15/18 08:59 Promethazine HCl 25 mg/Sodium Chloride 51 ml @ 204 mls/hr Q6H PRN IV 01/11/18 09:15 02/10/18 09:14 01/11/18 09:29 204 MLS/HR Sodium Phosphate 21 mmol/Sodium Chloride 507 ml @ 88 mls/hr ONE ONCE IV 01/11/18 10:30 01/11/18 16:15 01/11/18 10:42 88 MLS/HR Vital Signs: Date Time Temp Pulse Resp B/P (MAP) Pulse Ox O2 Delivery O2 Flow Rate FiO2 01/11/18 09:01 36.8 89 16 117/63 (81) 100 Room Air 01/11/18 09:00 89 15 128/67 (87) 100 Room Air 01/11/18 08:09 36.7 98 20 115/87 (96) 97 Room Air 01/11/18 08:06 98 Room Air 01/11/18 08:01 86 19 120/74 (89) 100 Room Air 01/11/18 07:52 84 20 131/77 (95) 100 Room Air 01/11/18 06:32 71 17 98 01/11/18 06:17 75 13 98 01/11/18 06:02 87 19 98 01/11/18 06:01 81 16 115/87 (96) 98 01/11/18 06:00 94 20 115/87 (96) 97 Room Air 01/11/18 05:47 68 20 97 01/11/18 05:32 90 23 100 01/11/18 05:31 73 21 97 01/11/18 05:16 94 16 97 01/11/18 05:02 96 19 127/69 (92) 99 01/11/18 05:01 86 19 100 01/11/18 04:46 78 18 98 01/11/18 04:38 36.5 90 19 115/81 (92) 99 Room Air 01/11/18 04:35 99 Room Air 01/11/18 04:31 79 19 99 01/11/18 04:16 86 19 98 01/11/18 04:15 76 19 99 01/11/18 04:01 84 24 115/81 (90) 97 01/11/18 04:00 97 17 99 01/11/18 03:45 92 15 97 01/11/18 03:33 111/71 (94) 01/11/18 03:30 36.5 90 18 111/71 99 Room Air 01/11/18 03:08 101 16 109/62 100 Room Air 01/11/18 02:30 98 16 98/60 97 Room Air 01/11/18 01:56 96 01/11/18 01:53 79 01/11/18 01:45 81 16 104/58 99 Room Air 01/11/18 01:01 115 01/11/18 01:00 99 15 106/61 98 Room Air 01/11/18 00:59 0 01/11/18 00:39 107 01/11/18 00:38 0 01/10/18 23:57 67 01/10/18 23:45 50 01/10/18 23:42 90 Room Air 01/10/18 23:42 36.7 65 16 107/68 90 Room Air 01/10/18 23:40 102 Laboratory Results: Last 24 Hours Test 01/10/18 23:44 01/11/18 00:48 01/11/18 01:20 01/11/18 04:10 White Blood Count 9.09 K/uL Red Blood Count 4.33 M/uL Hemoglobin 12.8 g/dL Hematocrit 35.9 % Mean Corpuscular Volume 82.9 fL Mean Corpuscular Hemoglobin 29.6 pg Mean Corpuscular Hemoglobin Concent 35.7 g/dl Platelet Count 368 K/uL Mean Platelet Volume 9.9 fL Neutrophils (%) (Auto) 54.9 % Lymphocytes (%) (Auto) 35.1 % Monocytes (%) (Auto) 8.5 % Eosinophils (%) (Auto) 0.9 % Basophils (%) (Auto) 0.4 % Neutrophils # (Auto) 4.99 K/uL Lymphocytes # (Auto) 3.19 K/uL Monocytes # (Auto) 0.77 K/uL Eosinophils # (Auto) 0.08 K/uL Basophils # (Auto) 0.04 K/uL RDW Standard Deviation 38.2 fL RDW Coefficient of Variation 12.6 % Immature Granulocyte % (Auto) 0.2 % Immature Granulocyte # (Auto) 0.02 K/uL Erythrocyte Sedimentation Rate 16 mm/hr Sodium Level 139 mmol/L Potassium Level 3.0 mmol/L Chloride Level 106 mmol/L Carbon Dioxide Level 23 mmol/L Anion Gap 10.0 mmol/L Blood Urea Nitrogen 8 mg/dl Creatinine 0.74 mg/dl Est Creatinine Clear Calc Drug Dose 130.4 ml/min Estimated GFR () 136.1 Estimated GFR (Non- 117.4 BUN/Creatinine Ratio 10.2 Bedside Glucose 103 mg/dl Random Glucose 104 mg/dl Calcium Level 8.6 mg/dl Phosphorus Level 3.0 mg/dl Magnesium Level 2.3 mg/dl Total Creatine Kinase 82 U/L Creatine Kinase MB < 0.5 ng/ml Creatine Kinase MB Ratio Troponin I < 0.015 ng/ml Thyroid Stimulating Hormone (TSH) 0.713 uIu/ml Human Chorionic Gonadotropin, Qual NEG Ethyl Alcohol mg/dL 252.0 mg/dl Lyme Disease IgG Antibody NEG Lyme Disease IgM Antibody NEG Urine Color YELLOW Urine Appearance CLEAR Urine pH 5.0 Urine Specific [place] 1.011 Urine Protein NEG Urine Glucose (UA) NEG Urine Ketones NEG Urine Occult Blood NEG Urine Nitrite NEG Urine Bilirubin NEG Urine Urobilinogen NEG Urine Leukocyte Esterase NEG Urine WBC (Auto) 0 /hpf Urine RBC (Auto) 0-4 /hpf Urine Hyaline Casts (Auto) 0 /lpf Urine Epithelial Cells (Auto) 0-5 /lpf Urine Bacteria (Auto) NEG Urine Opiates Screen NEG Urine Methadone, Qualitative NEG Urine Barbiturates NEG Urine Phencyclidine (PCP) Level NEG Ur Amphetamine/Methamphetamine NEG MDMA (Ecstasy) Screen NEG Urine Benzodiazepines Screen NEG Urine Cocaine Metabolite NEG Urine Marijuana (THC) NEG Test 01/11/18 04:57 01/11/18 09:05 01/11/18 09:10 Prothrombin Time 10.5 SECONDS Prothromb Time International Ratio 1.0 Activated Partial Thromboplast Time 25.0 SECONDS Partial Thromboplastin Ratio 1.0 Phosphorus Level 2.5 mg/dl 0.8 mg/dl Influenza Type A (RT-PCR) Neg for Influ A Influenza Type B (RT-PCR) Neg for Influ B White Blood Count 8.34 K/uL Red Blood Count 4.28 M/uL Hemoglobin 12.3 g/dL Hematocrit 34.7 % Mean Corpuscular Volume 81.1 fL Mean Corpuscular Hemoglobin 28.7 pg Mean Corpuscular Hemoglobin Concent 35.4 g/dl Platelet Count 336 K/uL Mean Platelet Volume 9.1 fL Neutrophils (%) (Auto) 79.5 % Lymphocytes (%) (Auto) 17.5 % Monocytes (%) (Auto) 2.8 % Eosinophils (%) (Auto) 0.0 % Basophils (%) (Auto) 0.0 % Neutrophils # (Auto) 6.63 K/uL Lymphocytes # (Auto) 1.46 K/uL Monocytes # (Auto) 0.23 K/uL Eosinophils # (Auto) 0.00 K/uL Basophils # (Auto) 0.00 K/uL RDW Standard Deviation 37.3 fL RDW Coefficient of Variation 12.7 % Immature Granulocyte % (Auto) 0.2 % Immature Granulocyte # (Auto) 0.02 K/uL Sodium Level 135 mmol/L Potassium Level 3.7 mmol/L Chloride Level 105 mmol/L Carbon Dioxide Level 20 mmol/L Anion Gap 10.0 mmol/L Blood Urea Nitrogen 5 mg/dl Creatinine 0.72 mg/dl Est Creatinine Clear Calc Drug Dose 136.3 ml/min Estimated GFR () 140.7 Estimated GFR (Non- 121.4 BUN/Creatinine Ratio 6.6 Random Glucose 126 mg/dl Calcium Level 8.6 mg/dl Magnesium Level 1.7 mg/dl
--- NOTE | 2018-01-11 13:51 | Psychiatric Consultation ---
Consultation Date of Consultation Jan 11, 2018. Identifying Data Lesly Leal is a 17-year-old female admitted to the medical floor with alcohol intoxication and a first-degree heart block. Psychiatric consultation to evaluate and make recommendations on AMS, acute intoxication, and recent stressors. Chief Complaint "I've just been overwhelmed. 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 History of Present Illness Lesly Leal is a 17-year-old female presented to the emergency room for alcohol intoxication. She was found to have a first-degree heart block and was admitted to the medical floor for further work-up. Pt seen on psychiatric consult service for AMS, acute intoxication, and recent stressors. Pt was seen while lying in bed. Parents at bedside were excused due to patient's preference to speak privately, which they were agreeable to. 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 Pt states sorority activities take up about 2-3 hours each day. Pt reports she has been prioritizing her time stating she will skip classes to catch up on other assignments, or doesn't go to class if her homework is not completed. Pt reports she has had difficulty since the beginning of this semester, but noticed that things started to unravel the beginning of November. Pt states she felt this way Spring semester of last school year as well. She reports low mood, anhedonia, decreased motivation to attend classes and take care of herself. She states she has been sleeping well, but has noticed a change in her appetite stating it has been fluctuating much more. Pt states on some days she is so busy she forgets to eat; on other days she over-eats. Pt does report unhealthy intentional restriction at times, but feels it has not been a consistent problem for her. She denies significant change in weight recently. She reports occasional difficulty with studying, and has noticed energy level lower than usual. Pt denies feelings of hopelessness or guilt, and does not endorse SI. She states she has never been on an inpatient mental health unit before and has never been prescribed medication for her mood. She is interested in seeing someone at [facility] through [employer] to initiate psychiatric treatment. Pt denies SI/HI, A/V hallucinations, agueda, paranoia, OCD, PTSD, diagnosed eating disorder, and other psychosis. Past Psychiatric History Current OP Treatment: no current treatment Prior OP Treatment: no prior treatment Prior Psych Hospitalizations: none Access to a Gun: No Suicide Attempts: No Past Medication Trials Denies previous psychiatric medications Past Medical/Surgical History History of Concussion/Seizure: No (1) Alcohol intoxication (2) Heart block, first degree Allergies Allergies: Coded Allergies: Unobtainable (Verified Allergy, Unknown, -, 01/11/18) Home Medications Unable to Obtain Active Prescriptions or Reported Meds Alcohol Use Alcohol Use In Past 12 Months: Yes Smoking Use Smoking Status: Never Smoker Personal History Lives in: [place] in and apartment with roommates while at [facility] Childhood: Grew up around [place]. 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 Relationship History: never Children: none Spiritual Affiliation: "yes, I believe" Legal History: none Psychological Trauma History: Denies Hx Traumatic Event Review of Systems Psych: denies symptoms other than stated above Constitutional: denied Cardiovascular: denied GI: reports ongoing nausea and vomiting Neurologic: denied Remainder of 10 body systems also reviewed and denied other than noted above. Examination Vital Signs Vital Signs Past 12 Hours Date Time Temp Pulse Resp B/P (MAP) Pulse Ox O2 Delivery O2 Flow Rate FiO2 01/11/18 12:05 98 Room Air 01/11/18 11:46 36.6 84 16 126/78 (94) 98 Room Air 01/11/18 10:10 98 17 145/97 (113) 100 Room Air 01/11/18 09:01 36.8 89 16 117/63 (81) 100 Room Air 01/11/18 09:00 89 15 128/67 (87) 100 Room Air 01/11/18 08:09 36.7 98 20 115/87 (96) 97 Room Air 01/11/18 08:06 98 Room Air 01/11/18 08:01 86 19 120/74 (89) 100 Room Air 01/11/18 07:52 84 20 131/77 (95) 100 Room Air 01/11/18 06:32 71 17 98 01/11/18 06:17 75 13 98 01/11/18 06:02 87 19 98 01/11/18 06:01 81 16 115/87 (96) 98 01/11/18 06:00 94 20 115/87 (96) 97 Room Air 01/11/18 05:47 68 20 97 01/11/18 05:32 90 23 100 01/11/18 05:31 73 21 97 01/11/18 05:16 94 16 97 01/11/18 05:02 96 19 127/69 (92) 99 01/11/18 05:01 86 19 100 01/11/18 04:46 78 18 98 01/11/18 04:38 36.5 90 19 115/81 (92) 99 Room Air 01/11/18 04:35 99 Room Air 01/11/18 04:31 79 19 99 01/11/18 04:16 86 19 98 01/11/18 04:15 76 19 99 01/11/18 04:01 84 24 115/81 (90) 97 01/11/18 04:00 97 17 99 01/11/18 03:45 92 15 97 01/11/18 03:33 111/71 (94) 01/11/18 03:30 36.5 90 18 111/71 99 Room Air 01/11/18 03:08 101 16 109/62 100 Room Air 01/11/18 02:30 98 16 98/60 97 Room Air 01/11/18 01:56 96 01/11/18 01:53 79 Laboratory Results Last 24 Hours Test 01/10/18 23:44 01/11/18 00:48 01/11/18 01:20 01/11/18 04:10 White Blood Count 9.09 K/uL Red Blood Count 4.33 M/uL Hemoglobin 12.8 g/dL Hematocrit 35.9 % Mean Corpuscular Volume 82.9 fL Mean Corpuscular Hemoglobin 29.6 pg Mean Corpuscular Hemoglobin Concent 35.7 g/dl Platelet Count 368 K/uL Mean Platelet Volume 9.9 fL Neutrophils (%) (Auto) 54.9 % Lymphocytes (%) (Auto) 35.1 % Monocytes (%) (Auto) 8.5 % Eosinophils (%) (Auto) 0.9 % Basophils (%) (Auto) 0.4 % Neutrophils # (Auto) 4.99 K/uL Lymphocytes # (Auto) 3.19 K/uL Monocytes # (Auto) 0.77 K/uL Eosinophils # (Auto) 0.08 K/uL Basophils # (Auto) 0.04 K/uL RDW Standard Deviation 38.2 fL RDW Coefficient of Variation 12.6 % Immature Granulocyte % (Auto) 0.2 % Immature Granulocyte # (Auto) 0.02 K/uL Erythrocyte Sedimentation Rate 16 mm/hr Sodium Level 139 mmol/L Potassium Level 3.0 mmol/L Chloride Level 106 mmol/L Carbon Dioxide Level 23 mmol/L Anion Gap 10.0 mmol/L Blood Urea Nitrogen 8 mg/dl Creatinine 0.74 mg/dl Est Creatinine Clear Calc Drug Dose 130.4 ml/min Estimated GFR () 136.1 Estimated GFR (Non- 117.4 BUN/Creatinine Ratio 10.2 Bedside Glucose 103 mg/dl Random Glucose 104 mg/dl Calcium Level 8.6 mg/dl Phosphorus Level 3.0 mg/dl Magnesium Level 2.3 mg/dl Total Creatine Kinase 82 U/L Creatine Kinase MB < 0.5 ng/ml Creatine Kinase MB Ratio Troponin I < 0.015 ng/ml Thyroid Stimulating Hormone (TSH) 0.713 uIu/ml Human Chorionic Gonadotropin, Qual NEG Ethyl Alcohol mg/dL 252.0 mg/dl Lyme Disease IgG Antibody NEG Lyme Disease IgM Antibody NEG Urine Color YELLOW Urine Appearance CLEAR Urine pH 5.0 Urine Specific [place] 1.011 Urine Protein NEG Urine Glucose (UA) NEG Urine Ketones NEG Urine Occult Blood NEG Urine Nitrite NEG Urine Bilirubin NEG Urine Urobilinogen NEG Urine Leukocyte Esterase NEG Urine WBC (Auto) 0 /hpf Urine RBC (Auto) 0-4 /hpf Urine Hyaline Casts (Auto) 0 /lpf Urine Epithelial Cells (Auto) 0-5 /lpf Urine Bacteria (Auto) NEG Urine Opiates Screen NEG Urine Methadone, Qualitative NEG Urine Barbiturates NEG Urine Phencyclidine (PCP) Level NEG Ur Amphetamine/Methamphetamine NEG MDMA (Ecstasy) Screen NEG Urine Benzodiazepines Screen NEG Urine Cocaine Metabolite NEG Urine Marijuana (THC) NEG Test 01/11/18 04:57 01/11/18 09:05 01/11/18 09:10 Prothrombin Time 10.5 SECONDS Prothromb Time International Ratio 1.0 Activated Partial Thromboplast Time 25.0 SECONDS Partial Thromboplastin Ratio 1.0 Phosphorus Level 2.5 mg/dl 0.8 mg/dl Influenza Type A (RT-PCR) Neg for Influ A Influenza Type B (RT-PCR) Neg for Influ B White Blood Count 8.34 K/uL Red Blood Count 4.28 M/uL Hemoglobin 12.3 g/dL Hematocrit 34.7 % Mean Corpuscular Volume 81.1 fL Mean Corpuscular Hemoglobin 28.7 pg Mean Corpuscular Hemoglobin Concent 35.4 g/dl Platelet Count 336 K/uL Mean Platelet Volume 9.1 fL Neutrophils (%) (Auto) 79.5 % Lymphocytes (%) (Auto) 17.5 % Monocytes (%) (Auto) 2.8 % Eosinophils (%) (Auto) 0.0 % Basophils (%) (Auto) 0.0 % Neutrophils # (Auto) 6.63 K/uL Lymphocytes # (Auto) 1.46 K/uL Monocytes # (Auto) 0.23 K/uL Eosinophils # (Auto) 0.00 K/uL Basophils # (Auto) 0.00 K/uL RDW Standard Deviation 37.3 fL RDW Coefficient of Variation 12.7 % Immature Granulocyte % (Auto) 0.2 % Immature Granulocyte # (Auto) 0.02 K/uL Sodium Level 135 mmol/L Potassium Level 3.7 mmol/L Chloride Level 105 mmol/L Carbon Dioxide Level 20 mmol/L Anion Gap 10.0 mmol/L Blood Urea Nitrogen 5 mg/dl Creatinine 0.72 mg/dl Est Creatinine Clear Calc Drug Dose 136.3 ml/min Estimated GFR () 140.7 Estimated GFR (Non- 121.4 BUN/Creatinine Ratio 6.6 Random Glucose 126 mg/dl Calcium Level 8.6 mg/dl Magnesium Level 1.7 mg/dl Mental Examination During interview pt is: alert and oriented, cooperative Appearance: disheveled (appearance consistent with reports of not feeling well , dressed in hospital gown) Eye contact is: good Motor behavior is: no abnormal motor movements (frequent position changes due to feeling nauseous) Speech: normal in rate, rhythm & volume Affect: depressed, blunted Mood is: depressed ("overwhelmed") Thought process: goal directed, linear, logical, clear, coherent Thought content: reality based without delusions Suicidal thought are: denied Homicidal thoughts are: denied Hallucinations: denies auditory, denies visual Cognition: memory grossly intact, attention grossly intact, language grossly intact Intelligence estimated to be: consistent with level of education Insight: fair Judgement: fair Impression / Recommendations Impression 17-year-old female seen for AMS with request to speak to industrial rehabilitation consultant. Pt reports symptoms consistent with recurrent depression, most notably the Spring semester, for the past two years. Pt reports low mood, anhedonia, fluctuation in appetite, feeling overwhelmed, and decreased motivation to the point of oversleeping and skipping classes. Discussed with patient that establishing care at [facility] would be appropriate given her history of symptoms. Recommended not starting medication now as she is being worked up for a first- degree heart block and has persistent nausea and vomiting. Discussed this reasoning with patient as we did not want potential side effects to complicate her current condition. Pt verbalized understanding and prefers to start medications in an outpatient setting. Discussed that liaison nurse would be by to discuss the process and make referrals/give contact information for [facility]. At this time, there is not clinical criteria to warrant inpatient mental health treatment. Following up with outpatient psychiatric providers to establish care is currently the least restrictive setting in which to address the patient' s current concerns. Recommendations (1) Depression 01/11 - Recommend postponing start of antidepressant medications until resolution of current condition to refrain from complicating the medical picture with potential side effects. - Psychiatric nurse liaison to discuss referral process and assist patient with necessary process to establish follow-up care at [facility] - Appreciate opportunity to be involved in the care of this patient, will continue to follow and make recommendations as necessary. Dr. De Santiago has personally been involved in the review of the above case and development of recommendations.
--- NOTE | 2018-01-11 13:53 | Cardiology Consultation ---
Cardiology Consultation Date of Consultation: Jan 11, 2018. Requesting Physician: Dr. Bro Reason for Consultation: Heart block Pt evaluation today including: conversation w/ patient, conversation w/ family , physical exam, lab review, review of studies, review of inpatient medication list History of Present Illness This is a 17-year-old woman who has been in good health, but was brought into the emergency room during the night after drinking alcohol and having nausea and vomiting. She evidently was poorly responsive and was transported to the emergency room by EMS. Her alcohol level was 252 and she did have nausea and vomiting throughout the night. She was observed to have periods of complete heart block on telemetry, although not necessarily correlated precisely with vomiting she did have frequent episodes when she first arrived and as her nausea has improved the episodes have become less frequent and less pronounced. Today at the time my interview with her she has had no presyncope or syncope in her past, her parents corroborate that. She does not recall having syncope or presyncope here either. This morning she is tired but is feeling better and has no other cardiovascular complaints such as palpitations, shortness of breath , chest discomfort, etc. Past Medical/Surgical History No significant past medical history Social History Smoking Status: Never Smoker History of Alcohol Use: Yes (socially) Review of Systems Constitutional: No fever, No weight loss, No weakness Respiratory: No cough, No wheezing, No shortness of breath, No dyspnea on exertion Cardiac: No chest pain, No orthopnea, No PND, No edema, No palpitations Abdomen: No pain, No nausea, No vomiting, No diarrhea, No GI bleeding Female : No problem reported Neurologic: No paralysis, No weakness, No numbness/tingling, No balance problems Heme: No abnormal bleeding/bruising, No clotting problems Endo: No fatigue Skin: No problem reported All Other Systems: Reviewed and Negative Allergies Coded Allergies: Unobtainable (Verified Allergy, Unknown, -, 01/11/18) Medications Current Inpatient Medications Medications (Trade) Dose Ordered Sig/Gordo Route Start Time Stop Time Status Last Admin Dose Admin Heparin Sodium (Porcine) (Heparin Sq 5000 Unit/0.5ml) 5,000 unit Q8H SQ 01/11/18 06:00 02/10/18 05:59 Acetaminophen (Tylenol Tab) 650 mg Q4H PRN PO 01/11/18 02:45 02/10/18 02:44 Al Hydrox/Mg Hydrox/Simethicone (Maalox Max Susp) 15 ml Q4H PRN PO 01/11/18 02:45 02/10/18 02:44 Magnesium Hydroxide (Milk Of Magnesia Susp) 30 ml Q12H PRN PO 01/11/18 02:45 02/10/18 02:44 Miscellaneous Information (Icu Protocol For Hyperglycemia) 1 ea PRN PRN N/A 01/11/18 02:45 01/13/18 02:44 Potassium Chloride/Dextrose/ Sod Cl 1,000 ml @ 200 mls/hr Q5H IV 01/11/18 04:00 01/11/18 13:59 01/11/18 09:29 200 MLS/HR Ioversol (Optiray 320) 100 ml UD PRN IV 01/11/18 09:00 01/15/18 08:59 Promethazine HCl 25 mg/Sodium Chloride 51 ml @ 204 mls/hr Q6H PRN IV 01/11/18 09:15 02/10/18 09:14 01/11/18 09:29 204 MLS/HR Sodium Phosphate 21 mmol/Sodium Chloride 507 ml @ 88 mls/hr ONE ONCE IV 01/11/18 10:30 01/11/18 16:15 01/11/18 10:42 88 MLS/HR Physical Exam Vital Signs Past 12 Hours Date Time Temp Pulse Resp B/P (MAP) Pulse Ox O2 Delivery O2 Flow Rate FiO2 01/11/18 12:05 98 Room Air 01/11/18 11:46 36.6 84 16 126/78 (94) 98 Room Air 01/11/18 10:10 98 17 145/97 (113) 100 Room Air 01/11/18 09:01 36.8 89 16 117/63 (81) 100 Room Air 01/11/18 09:00 89 15 128/67 (87) 100 Room Air 01/11/18 08:09 36.7 98 20 115/87 (96) 97 Room Air 01/11/18 08:06 98 Room Air 01/11/18 08:01 86 19 120/74 (89) 100 Room Air 01/11/18 07:52 84 20 131/77 (95) 100 Room Air 01/11/18 06:32 71 17 98 01/11/18 06:17 75 13 98 01/11/18 06:02 87 19 98 01/11/18 06:01 81 16 115/87 (96) 98 01/11/18 06:00 94 20 115/87 (96) 97 Room Air 01/11/18 05:47 68 20 97 01/11/18 05:32 90 23 100 01/11/18 05:31 73 21 97 01/11/18 05:16 94 16 97 01/11/18 05:02 96 19 127/69 (92) 99 01/11/18 05:01 86 19 100 01/11/18 04:46 78 18 98 01/11/18 04:38 36.5 90 19 115/81 (92) 99 Room Air 01/11/18 04:35 99 Room Air 01/11/18 04:31 79 19 99 01/11/18 04:16 86 19 98 01/11/18 04:15 76 19 99 01/11/18 04:01 84 24 115/81 (90) 97 01/11/18 04:00 97 17 99 01/11/18 03:45 92 15 97 01/11/18 03:33 111/71 (94) 01/11/18 03:30 36.5 90 18 111/71 99 Room Air 01/11/18 03:08 101 16 109/62 100 Room Air 01/11/18 02:30 98 16 98/60 97 Room Air 01/11/18 01:56 96 01/11/18 01:53 79 Constitutional: General Apperance: overweight Level of Distress: moderate distress Psychiatric: Mental Status: active & alert Head: normocephalic Eyes: EOM: EOMI ENMT: normal ENT inspection, hearing grossly normal Neck: supple, no masses Lungs: Respiratory effort: no dyspnea, good air movement Auscultation: breath sounds normal, no wheezing Cardiovascular: Heart Auscultation: RRR, no murmurs, no rubs, no gallops Peripheral Pulses: Bruits: none appreciated Abdomen: Bowel Sounds: normal Inspection & Palpation: soft, no tenderness, guarding & rebound, no masses Musculoskeletal: normal strength (5/5 throughout) Extremities: no edema Neurologic: Cranial Nerves: grossly intact Sensation: grossly intact Data Laboratory Results: Last 24 Hours Test 01/10/18 23:44 3/16/18 00:48 01/11/18 01:20 01/11/18 04:10 White Blood Count 9.09 K/uL Red Blood Count 4.33 M/uL Hemoglobin 12.8 g/dL Hematocrit 35.9 % Mean Corpuscular Volume 82.9 fL Mean Corpuscular Hemoglobin 29.6 pg Mean Corpuscular Hemoglobin Concent 35.7 g/dl Platelet Count 368 K/uL Mean Platelet Volume 9.9 fL Neutrophils (%) (Auto) 54.9 % Lymphocytes (%) (Auto) 35.1 % Monocytes (%) (Auto) 8.5 % Eosinophils (%) (Auto) 0.9 % Basophils (%) (Auto) 0.4 % Neutrophils # (Auto) 4.99 K/uL Lymphocytes # (Auto) 3.19 K/uL Monocytes # (Auto) 0.77 K/uL Eosinophils # (Auto) 0.08 K/uL Basophils # (Auto) 0.04 K/uL RDW Standard Deviation 38.2 fL RDW Coefficient of Variation 12.6 % Immature Granulocyte % (Auto) 0.2 % Immature Granulocyte # (Auto) 0.02 K/uL Erythrocyte Sedimentation Rate 16 mm/hr Sodium Level 139 mmol/L Potassium Level 3.0 mmol/L Chloride Level 106 mmol/L Carbon Dioxide Level 23 mmol/L Anion Gap 10.0 mmol/L Blood Urea Nitrogen 8 mg/dl Creatinine 0.74 mg/dl Est Creatinine Clear Calc Drug Dose 130.4 ml/min Estimated GFR () 136.1 Estimated GFR (Non- 117.4 BUN/Creatinine Ratio 10.2 Bedside Glucose 103 mg/dl Random Glucose 104 mg/dl Calcium Level 8.6 mg/dl Phosphorus Level 3.0 mg/dl Magnesium Level 2.3 mg/dl Total Creatine Kinase 82 U/L Creatine Kinase MB < 0.5 ng/ml Creatine Kinase MB Ratio Troponin I < 0.015 ng/ml Thyroid Stimulating Hormone (TSH) 0.713 uIu/ml Human Chorionic Gonadotropin, Qual NEG Ethyl Alcohol mg/dL 252.0 mg/dl Lyme Disease IgG Antibody NEG Lyme Disease IgM Antibody NEG Urine Color YELLOW Urine Appearance CLEAR Urine pH 5.0 Urine Specific Point 1.011 Urine Protein NEG Urine Glucose (UA) NEG Urine Ketones NEG Urine Occult Blood NEG Urine Nitrite NEG Urine Bilirubin NEG Urine Urobilinogen NEG Urine Leukocyte Esterase NEG Urine WBC (Auto) 0 /hpf Urine RBC (Auto) 0-4 /hpf Urine Hyaline Casts (Auto) 0 /lpf Urine Epithelial Cells (Auto) 0-5 /lpf Urine Bacteria (Auto) NEG Urine Opiates Screen NEG Urine Methadone, Qualitative NEG Urine Barbiturates NEG Urine Phencyclidine (PCP) Level NEG Ur Amphetamine/Methamphetamine NEG MDMA (Ecstasy) Screen NEG Urine Benzodiazepines Screen NEG Urine Cocaine Metabolite NEG Urine Marijuana (THC) NEG Test 01/11/18 04:57 01/11/18 09:05 01/11/18 09:10 Prothrombin Time 10.5 SECONDS Prothromb Time International Ratio 1.0 Activated Partial Thromboplast Time 25.0 SECONDS Partial Thromboplastin Ratio 1.0 Phosphorus Level 2.5 mg/dl 0.8 mg/dl Influenza Type A (RT-PCR) Neg for Influ A Influenza Type B (RT-PCR) Neg for Influ B White Blood Count 8.34 K/uL Red Blood Count 4.28 M/uL Hemoglobin 12.3 g/dL Hematocrit 34.7 % Mean Corpuscular Volume 81.1 fL Mean Corpuscular Hemoglobin 28.7 pg Mean Corpuscular Hemoglobin Concent 35.4 g/dl Platelet Count 336 K/uL Mean Platelet Volume 9.1 fL Neutrophils (%) (Auto) 79.5 % Lymphocytes (%) (Auto) 17.5 % Monocytes (%) (Auto) 2.8 % Eosinophils (%) (Auto) 0.0 % Basophils (%) (Auto) 0.0 % Neutrophils # (Auto) 6.63 K/uL Lymphocytes # (Auto) 1.46 K/uL Monocytes # (Auto) 0.23 K/uL Eosinophils # (Auto) 0.00 K/uL Basophils # (Auto) 0.00 K/uL RDW Standard Deviation 37.3 fL RDW Coefficient of Variation 12.7 % Immature Granulocyte % (Auto) 0.2 % Immature Granulocyte # (Auto) 0.02 K/uL Sodium Level 135 mmol/L Potassium Level 3.7 mmol/L Chloride Level 105 mmol/L Carbon Dioxide Level 20 mmol/L Anion Gap 10.0 mmol/L Blood Urea Nitrogen 5 mg/dl Creatinine 0.72 mg/dl Est Creatinine Clear Calc Drug Dose 136.3 ml/min Estimated GFR () 140.7 Estimated GFR (Non- 121.4 BUN/Creatinine Ratio 6.6 Random Glucose 126 mg/dl Calcium Level 8.6 mg/dl Magnesium Level 1.7 mg/dl Imaging: CT scan of the chest shows no pulmonary emboli, chest x-ray is unremarkable EKG: Twelve-lead electrocardiogram shows sinus rhythm and is normal Telemetry reviewed: Predominantly sinus rhythm with periods of AV block including second-degree and higher degree, periods of complete heart block lasting up to 10 seconds. Decreasing in frequency following admission. Echocardiogram: Normal ventricular size and function, no significant abnormality Assessment & Plan 1. Heart block: She has periods of heart block which were quite significant on arrival in the emergency room, and have become less frequent this morning. She was also quite nauseous on arrival with vomiting, that has significantly improved. The sinus rate during the periods of heart block does decrease slightly suggesting that this may well be a vagal response initiated by nausea and vomiting. She has no prior history of it, although she does not remember feeling faint in the emergency room either. AV block is little bit more unusual than sinus bradycardia as a vagal manifestation but certainly can occur. With no prior history of syncope and an adequate explanation for her current AV block I would not consider a pacemaker. Other considerations include event monitoring and tilt testing. A tilt test might be useful in that if we can produce a vagal response and it is associated with heart block ( rather than sinus bradycardia) then that might be confirmatory. I would not do that now and I am not sure we need to do it in any case. I think a 30 day event monitor would be prudent, it is possible she has conduction system disease (which can be congenital) and may have heart block at other times that she is unaware of. I can arrange this upon her discharge. Thank you for allowing me to participate in her care.
[2018-01-11] MEDS ORDERED: LORAZEPAM 2 MG/ML 1 ML VIAL IV ONE (14:40)
[2018-01-11 16:55] LABS: BLOOD UREA NITROGEN 2 mg/dl (7-18); CARBON DIOXIDE 20 mmol/L (21-32); GLUCOSE 125 mg/dl (70-99); PHOSPHORUS 2.9 mg/dl (2.5-4.9); POTASSIUM 3.7 mmol/L (3.5-5.1); SODIUM 135 mmol/L (136-145)
--- NOTE | 2018-01-11 22:30 | Progress Note ---
Progress Note Date of Service Jan 11, 2018. Progress Note Patient was resting comfortably at 6pm. 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 Patient was still throwing up this afternoon and was having heart blocks earlier. I will like to check her telemonitor overnight before discharge to assess if any blocks reappear. I will reassess her tomorrow.
[2018-01-12] VITALS (14 sets, daily range): BP systolic 96–115; BP diastolic 49–68; PULSE 57–72; TEMP 36.6–36.9; O2SAT 97–100
[2018-01-12] MEDS: D5NSS + 20MEQ KCL 1,000 ML IV SCH ×2 (00:41→05:47)
[2018-01-12] MEDS: HEPARIN SOD 5000 UNIT/0.5 ML CARP SQ SCH (05:47)
[2018-01-12 05:51] LABS: BASO % 0.1 %; BASO ABS # 0.01 K/uL (0-0.2); EOS % 0.2 %; EOS ABS # 0.02 K/uL (0-0.5); HEMATOCRIT 32.2 % (37-47); HEMOGLOBIN 11.2 g/dL (12.0-16.0); IG# 0.02 K/uL (0.00-0.02); LYMPH % 36.7 %; LYMPH ABS # 3.15 K/uL (1.2-3.4); MEAN CELL VOLUME 83.4 fL (80-100); MEAN CORPUSCULAR HGB CONC 34.8 g/dl (32-36); MEAN PLATELET VOLUME 9.1 fL (7.4-10.4); MONO % 10.1 %; MONO ABS # 0.87 K/uL (0.11-0.59); NEUT % 52.7 %; NEUT ABS # 4.51 K/uL (1.4-6.5); PLATELET COUNT 254 K/uL (130-400); RED CELL DISTRIBUTION WIDTH CV 13.2 % (11.5-14.5); WHITE BLOOD COUNT 8.58 K/uL (4.8-10.8)
[2018-01-12 06:44] LABS: CALCIUM 7.9 mg/dl (8.5-10.1); CREATININE 0.69 mg/dl (0.60-1.20); PHOSPHORUS 2.1 mg/dl (2.5-4.9); POTASSIUM 3.7 mmol/L (3.5-5.1)
[2018-01-12] MEDS ORDERED: POT PHOSPHATE MONOBASIC W/ SOD TAB PO SCH (09:00)
--- NOTE | 2018-01-12 09:12 | Discharge Summary ---
Discharge Summary Date of Service Jan 12, 2018. Discharge Summary Admission Date: Jan 11, 2018 at 02:48 Discharge Date: Jan 12, 2018 Hospital Course 1. Heart block: She has periods of heart block which were quite significant on arrival in the emergency room, and have become less frequent this morning. She was also quite nauseous on arrival with vomiting, that has significantly improved. The sinus rate during the periods of heart block does decrease slightly suggesting that this may well be a vagal response initiated by nausea and vomiting. She has no prior history of it, although she does not remember feeling faint in the emergency room either. AV block is little bit more unusual than sinus bradycardia as a vagal manifestation but certainly can occur. With no prior history of syncope and an adequate explanation for her current AV block I would not consider a pacemaker. Other considerations include event monitoring and tilt testing. A tilt test might be useful in that if we can produce a vagal response and it is associated with heart block ( rather than sinus bradycardia) then that might be confirmatory. I would not do that now and I am not sure we need to do it in any case. I think a 30 day event monitor would be prudent, it is possible she has conduction system disease (which can be congenital) and may have heart block at other times that she is unaware of. I can arrange this upon her discharge. Thank you for allowing me to participate in her care. Recommend postponing start of antidepressant medications until resolution of current condition to refrain from complicating the medical picture with potential side effects. - Psychiatric nurse liaison to discuss referral process and assist patient with necessary process to establish follow-up care at [facility] - Appreciate opportunity to be involved in the care of this patient, will continue to follow and make recommendations as necessary. Dr. De Santiago has personally been involved in the review of the above case and development of recommendations. This includes examination of the patient, discharge planning, medication reconciliation, and communication with other providers. Discharge Instructions Please refer to the electronic Patient Visit Report (Discharge Instructions) for additional information.
--- NOTE | 2018-01-12 09:58 | Critical Care Progress Note ---
Critical Care Progress Note Date of Service Jan 12, 2018. ICU Day ICU Day Number: 2 Attending Subjective No issues overnight. PO intake initiated AM today. No N/V noted. She appears back to baseline. No cardiopulmonary concerns noted. Objective Gen--no distress HEENT--no focal changes. Vitals--stable Pulmonary--toilet adequate Cardio--rate and volume status ok GI--active Neuro--no focal changes. Musculo--stable--no trauma suggested Assessment & Plan ETOH intoxication with likely vaso vagal episode and some persistent nausea and vomiting. 1. Cardio--Appears stable. I reviewed cardiology consult and agree with the plan. OK to leave the ICU 2. Pulmonary--toilet 3. GI--appears resolved 4. Neuro--stable Data Medications: Current Inpatient Medications Medications (Trade) Dose Ordered Sig/Gordo Route Start Time Stop Time Status Last Admin Dose Admin Heparin Sodium (Porcine) (Heparin Sq 5000 Unit/0.5ml) 5,000 unit Q8H SQ 01/11/18 06:00 02/10/18 05:59 01/12/18 05:47 5,000 UNIT Acetaminophen (Tylenol Tab) 650 mg Q4H PRN PO 01/11/18 02:45 02/10/18 02:44 01/12/18 05:57 650 MG Al Hydrox/Mg Hydrox/Simethicone (Maalox Max Susp) 15 ml Q4H PRN PO 01/11/18 02:45 02/10/18 02:44 Magnesium Hydroxide (Milk Of Magnesia Susp) 30 ml Q12H PRN PO 01/11/18 02:45 02/10/18 02:44 Miscellaneous Information (Icu Protocol For Hyperglycemia) 1 ea PRN PRN N/A 01/11/18 02:45 01/13/18 02:44 Ioversol (Optiray 320) 100 ml UD PRN IV 01/11/18 09:00 01/15/18 08:59 Promethazine HCl 25 mg/Sodium Chloride 51 ml @ 204 mls/hr Q6H PRN IV 01/11/18 09:15 02/10/18 09:14 01/11/18 15:02 204 MLS/HR Potassium/ Phosphorus/Sodium (Phospha 250 Neutral 155-852-130 Mg) 2 tab QID PO 3/17/18 09:00 02/11/18 08:59 01/12/18 09:42 2 TAB Vital Signs: Date Time Temp Pulse Resp B/P (MAP) Pulse Ox O2 Delivery O2 Flow Rate FiO2 01/12/18 08:01 64 16 100/54 (69) 99 01/12/18 08:00 36.9 61 10 100 Room Air 01/12/18 07:30 97 Room Air 01/12/18 07:01 71 13 115/68 (84) 99 01/12/18 07:00 68 16 98 01/12/18 06:00 65 15 104/66 (79) 98 Room Air 01/12/18 05:00 63 14 103/54 (70) 98 Room Air 01/12/18 04:00 36.7 70 16 96/49 (65) 97 Room Air 01/12/18 04:00 97 Room Air 01/12/18 03:00 71 15 104/49 (67) 97 Room Air 01/12/18 02:00 72 21 108/55 (72) 98 Room Air 01/12/18 01:00 66 22 102/55 (71) 97 Room Air 01/12/18 00:45 61 15 110/50 (70) 97 Room Air 01/12/18 00:00 36.6 57 22 97 Room Air 01/11/18 23:59 97 Room Air 01/11/18 23:00 79 5 96 Room Air 01/11/18 22:00 87 18 98 Room Air 01/11/18 21:00 69 25 98 Room Air 01/11/18 20:00 37.7 91 18 98 Room Air 01/11/18 20:00 96 Room Air 01/11/18 19:00 93 22 97 Room Air 01/11/18 17:18 36.9 83 17 141/75 (97) 98 Room Air 01/11/18 16:05 99 Room Air 01/11/18 14:24 37.1 93 17 129/82 (98) 99 Room Air 01/11/18 12:05 98 Room Air 01/11/18 11:46 36.6 84 16 126/78 (94) 98 Room Air 01/11/18 10:10 98 17 145/97 (113) 100 Room Air Laboratory Results: Last 24 Hours Test 01/11/18 14:22 01/11/18 16:08 01/12/18 00:43 01/12/18 05:42 Bedside Glucose 124 mg/dl 126 mg/dl Sodium Level 135 mmol/L 144 mmol/L Potassium Level 3.7 mmol/L 3.7 mmol/L Chloride Level 107 mmol/L 115 mmol/L Carbon Dioxide Level 20 mmol/L 24 mmol/L Anion Gap 8.0 mmol/L 5.0 mmol/L Blood Urea Nitrogen 2 mg/dl 3 mg/dl Creatinine 0.60 mg/dl 0.69 mg/dl Est Creatinine Clear Calc Drug Dose 163.6 ml/min 145.5 ml/min Estimated GFR () > 150.0 146.3 Estimated GFR (Non- 132.1 126.2 BUN/Creatinine Ratio 3.8 4.5 Random Glucose 125 mg/dl 97 mg/dl Calcium Level 8.0 mg/dl 7.9 mg/dl Phosphorus Level 2.9 mg/dl 2.1 mg/dl Magnesium Level 2.1 mg/dl 2.3 mg/dl White Blood Count 8.58 K/uL Red Blood Count 3.86 M/uL Hemoglobin 11.2 g/dL Hematocrit 32.2 % Mean Corpuscular Volume 83.4 fL Mean Corpuscular Hemoglobin 29.0 pg Mean Corpuscular Hemoglobin Concent 34.8 g/dl Platelet Count 254 K/uL Mean Platelet Volume 9.1 fL Neutrophils (%) (Auto) 52.7 % Lymphocytes (%) (Auto) 36.7 % Monocytes (%) (Auto) 10.1 % Eosinophils (%) (Auto) 0.2 % Basophils (%) (Auto) 0.1 % Neutrophils # (Auto) 4.51 K/uL Lymphocytes # (Auto) 3.15 K/uL Monocytes # (Auto) 0.87 K/uL Eosinophils # (Auto) 0.02 K/uL Basophils # (Auto) 0.01 K/uL RDW Standard Deviation 40.0 fL RDW Coefficient of Variation 13.2 % Immature Granulocyte % (Auto) 0.2 % Immature Granulocyte # (Auto) 0.02 K/uL Test 01/12/18 06:23 Bedside Glucose 94 mg/dl
--- NOTE | 2018-01-12 10:07 | Psychiatric Progress Notes ---
Psychiatric Progress Note Date of Service Jan 12, 2018. Notes met with patient as follow-up to initial consult. chart reviewed. Parents at bedside. Patient denies issues overnight, remains in ICU on monitor but is hoping for discharge today with follow-up cardiac monitoring as recommended by cardiology. She remains agreeable to follow up with CAPs following discharge. Family voiced no safety concerns. Will confirm liaison has given appropriate CAPs referral info as patient unsure of appt at this time.
--- NOTE | 2018-01-12 11:10 | Discharge Instructions ---
Discharge Instructions Date of Service Jan 12, 2018. Admission Reason for Admission: Alcohol Intoxication; Heart Block, First Degree Discharge Discharge Diagnosis / Problem: Alcohol intoxication, likely vagal response causing a heart block. Discharge Goals Goal(s): Decrease discomfort, Improve function, Increase independence Activity Recommendations Activity Limitations: resume your previous activity . Instructions / Follow-Up Instructions / Follow-Up Cariology will contact you regarding heart monitor which will be used for 30 days. Psych outpatient follow up recommended as well. will continue supplements for 5 more days. Follow up labs done in 1 week. Current Hospital Diet Patient's current hospital diet: Regular Diet Discharge Diet Recommended Diet: Regular Diet Pending Studies Studies pending at discharge: no Medical Emergencies . Who to Call and When: Medical Emergencies: If at any time you feel your situation is an emergency, please call 911 immediately. . Non-Emergent Contact Non-Emergency issues call your: Primary Care Provider Call Non-Emergent contact if: you have any medication questions . . "Provider Documentation" section prepared by Drew Faustin. .
[2018-01-12] MEDS ORDERED: MGNO400 PO (11:22)
[2018-01-12] MEDS ORDERED: POTTAB2 PO (11:22)
[2018-01-12] MEDS ORDERED: POTASSIUM PHOS 3 MMOL/1 ML INFUSION IV STA (12:30)
[2018-01-12] MEDS ORDERED: POTASSIUM PHOSPHATE INJ 15 MMOL in SODIUM CHLORIDE 0.9% 250ML 250 ML IV ONE (12:45)
== END 2018-01-12 12:33 | disposition home or self-care (01) | DRG 897 ==
LOC: EDBD 23:33 → C.EDA 23:35 → C.MSICU 01-11 02:48 → ENRESERV 01-11 02:57
PROVIDERS: ADMIT Internal Medicine; ATTEND Internal Medicine Sports Medicine
DX: F10.129 Alcohol abuse with intoxication, unspecified (principal); I44.2 Atrioventricular block, complete; I45.81 Long QT syndrome; T51.0X1A Toxic effect of ethanol, accidental (unintentional), initial encounter; Y90.8 Blood alcohol level of 240 mg/100 ml or more; E87.6 Hypokalemia; Z79.3 Long term (current) use of hormonal contraceptives; Z82.49 Family history of ischemic heart disease and other diseases of the circulatory system; F32.9 Major depressive disorder, single episode, unspecified